=== PATIENT | female | born 1990 ===

== ENCOUNTER → 2018-03-28 | Emergency (ER) | payer BC, OTHER ==
[~2018-03-28] VITALS: Ht 154.9 cm; Wt 55.3 kg
--- OUTSIDE RECORDS SUMMARY | 2018-03-28 08:49 | XMS REPORT ---
Author Author SALOMON JAIN Organization [facility] Address [address] [place] [address] Care Team Providers Care Creative Perfumer Name Role Phone KING SALOMON Unavailable PROBLEMS Unknown Problems ALLERGIES No Known Allergies ENCOUNTERS Encounter Location Date Diagnosis [facility] [address] [facility] [id number] [place] [address] Jul, Fatigue, unspecified type R53.83 IMMUNIZATIONS No Known Immunizations SOCIAL HISTORY Never Assessed REASON FOR VISIT Tiredness, not having appetite, headaches x 2 weeks -- rajendra de luna PLAN OF CARE Activity Details Follow Up 4 Weeks if not better Reason:fatigue VITAL SIGNS Height 5'1" in 2017-08-20 Weight 129.0 lbs 2017-08-20 Temperature 98.0 degrees Fahrenheit 2017-08-20 Heart Rate 78 bpm 2017-08-20 Respiratory Rate 18 2017-08-20 BMI 24.37 kg/m2 2017-08-20 Blood pressure systolic 120 mmHg 2017-08-20 Blood pressure diastolic 70 mmHg 2017-08-20 MEDICATIONS Medication Instructions Dosage Frequency Start Date End Date Duration Status Dicyclomine HCl 20 MG Orally Four times a day 1 tablet 6h Active RESULTS No Results PROCEDURES Procedure Date Ordered Result Body Site COMPLETE CBC W/AUTO DIFF WBC August 20, 2017 COMPREHEN METABOLIC PANEL August 20, 2017 VENIPUNCT, ROUTINE* August 20, 2017 HETEROPHILE ANTIBODIES August 20, 2017 ASSAY THYROID STIM HORMONE August 20, 2017 URINALYSIS, AUTO, W/O SCOPE August 20, 2017 INSTRUCTIONS MEDICATIONS ADMINISTERED No Known Medications
--- NOTE | 2018-03-28 09:45 | ED GI ---
General Chief Complaint: Abdominal/GI Problems Stated Complaint: ABD PAIN Source of Information: Patient, Spouse Exam Limitations: No Limitations History of Present Illness Date Seen by Provider: Mar 28, 2018 Time Seen by Provider: 09:29 Initial Comments The patient resents to ER by private conveyance with her and chief complaint that she's having some severe cramping gripping-like abdominal pain in her epigastric region that occurred about 30 minutes after Coffee and taking her Eluxadoline. She just started of a day trial and she is on day 7 of it. She' s not had any problems with it but she doesn't feel it helped either. She's been following with gastroenterology in [place] and they have diagnosed her with irritable bowel syndrome. She has no known sphincter OD dysfunction. She's had no abdominal surgeries. She did have a transvaginal surgery to have an IUD retrieval. She has an IUD and now. She's not having periods. The pain does not radiate. The pain lasted for about half an hour progressively getting better and by the time she got into the ER her pain was gone. She was not having any nausea or vomiting. No constipation because she's been having diarrhea the entire time. She does not smoke or use recreational drugs but does have an occasional drink. No history of pancreatitis. No hyperlipidemia or diabetes. No other significant medical history. She's been 3 times total. She said the pain caused her to double over and rated as a 9 out of 10. Allergies and Home Medications Allergies Coded Allergies: No Known Drug Allergies (Unverified , 03/28/18) Patient Home Medication List Home Medication List Reviewed: Yes Review of Systems Review of Systems Constitutional: No chills, No fever, No malaise EENTM: No Blurred Vision, No Double Vision Respiratory: Denies Cough, Denies Shortness of Air Cardiovascular: Denies Chest Pain, Denies Edema Gastrointestinal: See HPI, Abdominal Pain; Denies Constipated; Diarrhea; Denies Nausea, Denies Vomiting Genitourinary: Denies Burning, Denies Discharge Musculoskeletal: No back pain, No joint pain Skin: No pruritus, No rash Psychiatric/Neurological: Denies Headache, Denies Numbness Past [id number] Hx Patient Social History Alcohol Use: Occasionally Uses Alcohol Beverage of Choice: Beer Recreational Drug Use: No Smoking Status: Never a Smoker Physical Exam Vital Signs Vital Signs - First Documented 1/28/19 08:55 Temp 98.6 Pulse 86 Resp 16 B/P (MAP) 130/89 (103) Pulse Ox 99 O2 Delivery Room Air Capillary Refill : Height/Weight/BMI Height: '" Weight: lbs. oz. kg; BMI Method: General Appearance: WD/WN, no apparent distress HEENT: PERRL/EOMI, pharynx normal Respiratory: no respiratory distress, no accessory muscle use Cardiovascular: normal peripheral pulses, regular rate, rhythm, no edema Gastrointestinal: normal bowel sounds (active), non tender, soft, no organomegaly, other (negative for Rovsing sign but she does have tenderness over McBurney's point without rebound tenderness, psoas sign or other mesenteric signs. Negative for Aguayo sign.) Extremities: normal range of motion, normal capillary refill Neurologic/Psychiatric: alert, normal mood/affect, oriented x 3 Skin: normal color, warm/dry Progress/Results/Core Measures Results/Orders Lab Results Laboratory Tests Test 03/28/18 09:47 Range/Units White Blood Count 6.2 4.3-11.0 10^3/uL Red Blood Count 4.35 4.35-5.85 10^6/uL Hemoglobin 14.1 11.5-16.0 G/DL Hematocrit 40 35-52 % Mean Corpuscular Volume 93 80-99 FL Mean Corpuscular Hemoglobin 32 25-34 PG Mean Corpuscular Hemoglobin Concent 35 32-36 G/DL Red Cell Distribution Width 12.1 10.0-14.5 % Platelet Count 372 130-400 10^3/uL Mean Platelet Volume 9.4 7.4-10.4 FL Neutrophils (%) (Auto) 59 42-75 % Lymphocytes (%) (Auto) 34 12-44 % Monocytes (%) (Auto) 6 0-12 % Eosinophils (%) (Auto) 1 0-10 % Basophils (%) (Auto) 0 0-10 % Neutrophils # (Auto) 3.6 1.8-7.8 X 10^3 Lymphocytes # (Auto) 2.1 1.0-4.0 X 10^3 Monocytes # (Auto) 0.3 0.0-1.0 X 10^3 Eosinophils # (Auto) 0.1 0.0-0.3 10^3/uL Basophils # (Auto) 0.0 0.0-0.1 10^3/uL Sodium Level 139 135-145 MMOL/L Potassium Level 3.8 3.6-5.0 MMOL/L Chloride Level 105 98-107 MMOL/L Carbon Dioxide Level 23 21-32 MMOL/L Anion Gap 11 5-14 MMOL/L Blood Urea Nitrogen 8 7-18 MG/DL Creatinine 0.75 0.60-1.30 MG/DL Estimat Glomerular Filtration Rate > 60 BUN/Creatinine Ratio 11 Glucose Level 91 70-105 MG/DL Calcium Level 9.0 8.5-10.1 MG/DL Corrected Calcium 8.5-10.1 MG/DL Total Bilirubin 0.7 0.1-1.0 MG/DL Aspartate Amino Transf (AST/SGOT) 88 H 5-34 U/L Alanine Aminotransferase (ALT/SGPT) 39 0-55 U/L Alkaline Phosphatase 52 40-136 U/L C-Reactive Protein High Sensitivity 0.02 0.00-0.50 MG/DL Total Protein 7.6 6.4-8.2 GM/DL Albumin 4.6 H 3.2-4.5 GM/DL Lipase 33 8-78 U/L My Orders Orders - TORIN GAMEZ Peterson Cbc With Automated Diff (03/28/18 09:39) Comprehensive Metabolic Panel (03/28/18 09:39) Hs C Reactive Protein (03/28/18 09:39) Lipase (03/28/18 09:39) Vital Signs/I&O 03/28/18 08:55 Temp 98.6 Pulse 86 Resp 16 B/P (MAP) 130/89 (103) Pulse Ox 99 O2 Delivery Room Air Progress Progress Note #1: Time: 09:44 Progress Note We'll get a lipase and some lab work looking for infection or inflammation. Suspicion is that this is related to her medication possibly causing swelling in spasming or syncope or OD dysfunction. Her right lower quadrant tenderness to palpation in is only mildly concerning. If her labs show anything we will consider getting a CT of the abdomen. Her symptoms are completely passed at this time. We recommend she not continue to take the medication and instead follow-up with gastroenterology outpatient if we don't find anything to workup further today. Progress Note #2: Time: 11:33 Progress Note Patient is still pain and nausea free. Rule out allow her to follow up with gastroenterology as her labs are unremarkable. Departure Impression Primary Impression: IBS (irritable bowel syndrome) Qualified Codes: K58.0 - Irritable bowel syndrome with diarrhea Disposition: 01 HOME, SELF-CARE Condition: Stable Departure-Patient Inst. Decision time for Depature: 11:34 Patient Instructions: Irritable Bowel Syndrome (DC) Add. Discharge Instructions: I suspect that maybe the medication contributed to the spasming, stabbing pain that you felt this morning but since you're lab work is okay we are going to let you follow up with gastroenterology outpatient. If your pain returns and return to the nearest emergency room for reevaluation and imaging. Discontinue the Eluxodoline. All discharge instructions reviewed with patient and/or family. Voiced understanding. Work/School Note: Work Release Form Date Seen in the Emergency Department: Mar 28, 2018 Return to Work: Mar 29, 2018 Restrictions: No Restrictions TORIN GAMEZ Mar 28, 2018 09:45
[2018-03-28 10:04] LABS: BASOPHILS % (AUTO) 0 % (0-10); EOSINOPHILS # (AUTO) 0.1 10^3/uL (0.0-0.3); EOSINOPHILS % (AUTO) 1 % (0-10); HEMATOCRIT 40 % (35-52); HEMOGLOBIN 14.1 G/DL (11.5-16.0); LYMPHOCYTES # (AUTO) 2.1 X 10^3 (1.0-4.0); LYMPHOCYTES % (AUTO) 34 % (12-44); MEAN CORPUSCULAR HEMOGLOBIN 32 PG (25-34); MEAN CORPUSCULAR HGB CONC 35 G/DL (32-36); MEAN CORPUSCULAR VOLUME 93 FL (80-99); MEAN PLATELET VOLUME 9.4 FL (7.4-10.4); MONOCYTES # (AUTO) 0.3 X 10^3 (0.0-1.0); MONOCYTES % (AUTO) 6 % (0-12); NEUTROPHILS # (AUTO) 3.6 X 10^3 (1.8-7.8); NEUTROPHILS % (AUTO) 59 % (42-75); PLATELET COUNT 372 10^3/uL (130-400); RED CELL DISTRIBUTION WIDTH 12.1 % (10.0-14.5); WHITE BLOOD COUNT 6.2 10^3/uL (4.3-11.0)
[2018-03-28 10:21] LABS: ALANINE AMINOTRANSFERASE 39 U/L (0-55); ALBUMIN 4.6 GM/DL (3.2-4.5); ALKALINE PHOSPHATASE 52 U/L (40-136); BILIRUBIN,TOTAL 0.7 MG/DL (0.1-1.0); BUN/CREATININE RATIO 11; CARBON DIOXIDE 23 MMOL/L (21-32); CHLORIDE 105 MMOL/L (98-107); CREATININE SERUM 0.75 MG/DL (0.60-1.30); GFR ESTIMATED > 60; GLUCOSE 91 MG/DL (70-105); LIPASE 33 U/L (8-78); POTASSIUM 3.8 MMOL/L (3.6-5.0); SODIUM 139 MMOL/L (135-145); TOTAL PROTEIN 7.6 GM/DL (6.4-8.2)
[2018-03-28 11:43] VITALS: BP 115/85
== END | disposition home or self-care (01) ==
LOC: ER 08:46
DX: K58.0 Irritable bowel syndrome with diarrhea (principal); Z97.5 Presence of (intrauterine) contraceptive device
CPT/HCPCS: 36415; 80053; 83690; 84703; 85025; 86141

== ENCOUNTER 2019-11-12 11:04 | Outpatient (CLI) | payer BC ==
[~2019-11-12] VITALS: Ht 154.9 cm; Wt 63.9 kg
--- NOTE | 2019-11-12 11:10 | NUR ---
JACKIE VERGARA presented to unit from ED, accompanied by Significant Other, with c/o NO MOVEMENT. JACKIE VERGARA weighed, gowned, voided, and to bed. EFHM and TOCO applied, VS taken. JACKIE VERGARA oriented to bed controls, call light, TV, heat, and A/C controls.
[2019-11-12 11:15] VITALS: BP 118/74
[2019-11-12 11:46] LABS: BILIRUBIN,URINE NEGATIVE (NEGATIVE); CLARITY,URINE CLEAR; COLOR,URINE YELLOW; GLUCOSE, URINE (UA) NEGATIVE (NEGATIVE); KETONES,URINE NEGATIVE (NEGATIVE); LEUKOCYTE ESTERASE ,URINE NEGATIVE (NEGATIVE); NITRITE,URINE NEGATIVE (NEGATIVE); PROTEIN,URINE NEGATIVE (NEGATIVE)
[2019-11-12] MEDS ORDERED: PNV11TAB5 PO (11:51)
--- NOTE | 2019-11-12 11:53 | NUR ---
Dr. Salmeron notified of patient's arrival, complaints, and EFM/TOCO tracing. Audible movements noted by this RN and confirmed by the patient. New orders received.
--- NOTE | 2019-11-12 12:00 | NUR ---
Reactive FHR tracing for gestational age (25.2). FHR baseline 145 bpm with accels noted up to 155 bpm. Variable decels noted. No uterine ctx's noted. EFM/TOCO removed.
--- NOTE | 2019-11-12 12:05 | NUR ---
Discharge instructions and medications reviewed with the patient and her both written and verbally. Patient verbalizes understanding and questions answered.
[2019-11-12 12:06] LABS: AMPHETAMINE SCREEN, URINE NEGATIVE (NEGATIVE); BARBITURATE SCREEN URINE NEGATIVE (NEGATIVE); BENZODIAZEPINES SCREEN URINE NEGATIVE (NEGATIVE); CANNABINOID SCREEN, URINE NEGATIVE (NEGATIVE); COCAINE SCREEN URINE NEGATIVE (NEGATIVE); METHADONE STAT NEGATIVE (NEGATIVE); METHAMPHETAMINE SCREEN URINE S NEGATIVE (NEGATIVE); OPIATE SCREEN URINE NEGATIVE (NEGATIVE); OXYCODONE STAT NEGATIVE (NEGATIVE); PROPOXYPHENE STAT NEGATIVE (NEGATIVE); TRICYCLIC ANTIDEPRESSANTS SCRE NEGATIVE (NEGATIVE)
[2019-11-12 12:11] LABS: BACTERIA,URINE TRACE /HPF
--- NOTE | 2019-11-12 12:13 | NUR ---
Patient discharged at this time and ambulated from the unit accompanied by significant other. No signs or symptoms of distress noted.
--- NOTE | 2019-11-13 08:49 | Physician Query-Final Dx ---
Clinic Account Progress/Dx Physician Query: Please give diagnosis Please include # weeks gestation Date of Service Nov 12, 2019 at 11:04 YG GRANT Nov 13, 2019 08:49
== END 2019-11-12 12:13 | disposition home or self-care (01) ==
LOC: WSo 11:04 → LDRP 11:04 → WSo 12:13
PROVIDERS: ATTEND Family Medicine
DX: O36.8120 Decreased fetal movements, second trimester, not applicable or unspecified (principal); Z3A.25 25 weeks gestation of pregnancy
CPT/HCPCS: 80306; 81000; 99212